=== PATIENT | male | born 1980 | race Caucasian/White ===

== ENCOUNTER 2019-06-03 01:37 | Emergency (ER) | payer SELFPAY ==
[2019-06-03] MEDS ORDERED: LIDOCAINE 1% MPF 5 ML VIAL ONE (02:20)
--- NOTE | 2019-06-03 03:04 | EDPHYS ---
Physician Documentation [facility] Name: Thee Key Age: 39 yrs Sex: Male : 1980 Arrival Date: 06/03/2019 Time: 01:42 Bed 4 Private MD: ED Physician Dick Sterling HPI: 06/03 02:12 This 39 yrs old Male presents to ER via EMS with complaints of fall injury. jr8 02:12 Details of fall: The patient fell from an upright position, while standing. Onset: The jr8 symptoms/episode began/occurred acutely, today. Associated injuries: The patient sustained injury to the head. Severity of symptoms: At their worst the symptoms were moderate, in the emergency department the symptoms are unchanged. It is unknown whether or not the patient has had similar symptoms in the past. The patient has not recently seen a physician. Patient stated that he had alcohol tonight. Stated that he fell but does not remember incident. Only remembers waking up on ground. Pain to head and face. Denies any other pain . Historical: - Allergies: :43 No Known Allergies; bb - Home Meds: 01:43 None [Active]; bb - PMHx: 01:43 None; bb - PSHx: 01:43 Tonsillectomy; bb - Immunization history:: Adult Immunizations up to date. - Social history:: Smoking status: Patient uses tobacco products, denies chronic smoking, but will smoke occasionally, Patient uses alcohol, on a daily basis. Patient/guardian denies using street drugs. - Ebola Screening: : No symptoms or risks identified at this time. ROS: 02:12 Eyes: Negative for injury, pain, redness, and discharge, Neck: Negative for injury, jr8 pain, and swelling, Cardiovascular: Negative for chest pain, palpitations, and edema, Respiratory: Negative for shortness of breath, cough, wheezing, and pleuritic chest pain, Abdomen/GI: Negative for abdominal pain, nausea, vomiting, diarrhea, and constipation, Back: Negative for injury and pain, MS/Extremity: Negative for injury and deformity, Neuro: Negative for headache, weakness, numbness, tingling, and seizure. 02:12 ENT: Positive for injury or acute deformity, laceration. 02:12 Skin: Positive for laceration(s), of the scalp. Exam: 02:12 Eyes: Pupils equal round and reactive to light, extra-ocular motions intact. Lids and jr8 lashes normal. Conjunctiva and sclera are non-icteric and not injected. Cornea within normal limits. Periorbital areas with no swelling, redness, or edema. Neck: Trachea midline, no thyromegaly or masses palpated, and no cervical lymphadenopathy. Supple, full range of motion without nuchal rigidity, or vertebral point tenderness. No Meningismus. Cardiovascular: Regular rate and rhythm with a normal S1 and S2. No gallops, murmurs, or rubs. Normal PMI, no JVD. No pulse deficits. Respiratory: Lungs have equal breath sounds bilaterally, clear to auscultation and percussion. No rales, rhonchi or wheezes noted. No increased work of breathing, no retractions or nasal flaring. Abdomen/GI: Soft, non-tender, with normal bowel sounds. No distension or tympany. No guarding or rebound. No evidence of tenderness throughout. Back: No spinal tenderness. No costovertebral tenderness. Full range of motion. Skin: Warm, dry with normal turgor. Normal color with no rashes, no lesions, and no evidence of cellulitis. MS/ Extremity: Pulses equal, no cyanosis. Neurovascular intact. Full, normal range of motion. Neuro: Awake and alert, GCS 15, oriented to person, place, time, and situation. Cranial nerves II-XII grossly intact. Motor strength 5/5 in all extremities. Sensory grossly intact. Cerebellar exam normal. Normal gait. 02:12 Head/face: Noted is a laceration(s), that is deep, that is jagged, 1 cm(s), of the center part back of head. 02:12 ENT: Exam is negative for earache, ear discharge, TM abnormalities, epistaxis, nasal discharge, sinus tenderness, pharyngitis, exudate, abnormal voice, Mouth: Lips: moist, lacerated, Patient has laceration approximately 3 cm to inner upper left lip and another external lip laceration going threw the vermilion border that is about 3 cm to upper left lip , Oral mucosa: pink and intact, moist, Gums: pink, Tongue: is moist, Posterior pharynx: Airway: patent, Tonsils: are normal in appearance, Uvula: midline, swelling, is not appreciated, Dental exam: normal. Vital Signs: 01:43 BP 116 / 73; Pulse 84; Resp 16 S; Temp 98.7(O); Pulse Ox 99% on R/A; Weight 72.57 kg bb (R); Height 5 ft. 7 in. (170.18 cm) (R); Pain 0/10; 02:55 BP 110 / 60; Pulse 80; Resp 18; Pulse Ox 100% ; ea 01:43 Body Mass Index 25.06 (72.57 kg, 170.18 cm) bb Laceration: 02:12 Wound Repair of 1cm ( 0.4in ) subcutaneous laceration to scalp. Distal jr8 neuro/vascular/tendon intact. Wound prep: Extensive cleansing with betadine, Wound irrigation with saline, Wound explored extensively. Skin closed with 1 jazmin Aromas using staple gun. Patient tolerated well. 02:12 Wound Repair of 3cm ( 1.2in ) mucosal laceration to left inner lip. Linear shaped.. jr8 Distal neuro/vascular/tendon intact. Anesthesia: Local anesthetic administered with 1 mls of 1% lidocaine. Wound prep: Wound irrigation with saline. Skin closed with 4 5-0 chromic using interrupted sutures and sterile technique. Patient tolerated well. 02:12 Wound Repair of 3cm ( 1.2in ) mucosal laceration to left external upper lip. Linear jr8 shaped.. Minimal bleeding noted.. Distal neuro/vascular/tendon intact. Anesthesia: Local anesthetic administered with 2 mls of 1% lidocaine. Wound prep: Extensive cleansing with betadine, Wound irrigation with saline, Wound explored extensively. Skin closed with 4 5-0 chromic using interrupted sutures and sterile technique. Patient tolerated well. MDM: 01:45 Patient medically screened. jr8 02:55 Data reviewed: vital signs, nurses notes, radiologic studies, CT scan. Data jr8 interpreted: Pulse oximetry: on room air is 99 %. Interpretation: normal. Counseling: I had a detailed discussion with the patient and/or guardian regarding: the historical points, exam findings, and any diagnostic results supporting the discharge/admit diagnosis, the need for outpatient follow up, a family practitioner, to return to the emergency department if symptoms worsen or persist or if there are any questions or concerns that arise at home. 06/03 02:21 Order name: Head C Spine Mpr Wo Con EDMS Administered Medications: No medications were administered Disposition: 06:41 Co-signature as Attending Physician, Dick Sterling MD I agree with the assessment and tw4 plan of care. Disposition: 06/03/19 03:03 Discharged to Home. Impression: Laceration without foreign body of scalp, Laceration of lip and oral cavity without foreign body. - Condition is Stable. - Discharge Instructions: Laceration Care, Adult, Stitches, Aromas, or Adhesive Wound Closure. - Prescriptions for Peridex 0.12 % Mucous Membrane mouthwash - place 15 milliliter by MUCOUS MEMBRANE route 2 times per day for 5 days (after meals), swish in mouth for 30 seconds then spit out; 1 bottle. - Medication Reconciliation Form, Thank You Letter, Antibiotic Education, Prescription Opioid Use form. - Follow up: Private Physician; When: 5 - 6 days; Reason: Wound Recheck, Recheck today's complaints, Continuance of care, Staple/Suture removal, Re-evaluation by your physician. - Problem is new. - Symptoms have improved. - Notes: Staple in head needs to be taken out in 7 days Stitches are dissolvable and will come out on there own Use Peridex twice daily for 5 days Signatures: Dispatcher [employer] EDHI Mary Ann Weiss RN RN Wai Trinh PA PA jr8 Dick Sterling MD MD tw4 Leny Lynne cc3 Corrections: (The following items were deleted from the chart) 02:31 02:21 Head C Spine MPR Wo Con+CT.RAD.BRZ ordered. EDHI EDMS 03:26 03:03 06/03/2019 03:03 Discharged to Home. Impression: Laceration without foreign body cc3 of scalp; Laceration of lip and oral cavity without foreign body. Condition is Stable. Discharge Instructions: Laceration Care, Adult, Stitches, Aromas, or Adhesive Wound Closure. Prescriptions for Peridex 0.12 % Mucous Membrane mouthwash - place 15 milliliter by MUCOUS MEMBRANE route 2 times per day for 5 days (after meals), swish in mouth for 30 seconds then spit out; 1 bottle. and Forms are Medication Reconciliation Form, Thank You Letter, Antibiotic Education, Prescription Opioid Use. Follow up: Private Physician; When: 5 - 6 days; Reason: Wound Recheck, Recheck today's complaints, Continuance of care, Staple/Suture removal, Re-evaluation by your physician. Problem is new. Symptoms have improved. jr8
--- NOTE | 2019-06-03 03:04 | ER ---
Nurse's Notes [facility] Name: Thee Key Age: 39 yrs Sex: Male : 1980 Arrival Date: 06/03/2019 Time: 01:42 Bed 4 Private MD: Diagnosis: Laceration without foreign body of scalp;Laceration of lip and oral cavity without foreign body Presentation: 06/03 01:42 Presenting complaint: EMS states: they were toned out to [address] for report of pt with bb fall injury, head trauma. Transition of care: patient was not received from another setting of care. Onset of symptoms was June 03, 2019. Risk Assessment: Do you want to hurt yourself or someone else? Patient reports no desire to harm self or others. Initial Sepsis Screen: Does the patient meet any 2 criteria? No. Patient's initial sepsis screen is negative. Does the patient have a suspected source of infection? No. Patient's initial sepsis screen is negative. Care prior to arrival: None. 01:42 Method Of Arrival: EMS: [facility] 01:42 Acuity: SALLY 2 bb Triage Assessment: 02:00 General: Appears in no apparent distress. Behavior is calm, cooperative, appropriate ea for age. Pain: Complains of pain in mouth and head. Neuro: Level of Consciousness is awake, alert, obeys commands, Oriented to person, place, time, situation. Cardiovascular: Patient's skin is warm and dry. Respiratory: Airway is patent Respiratory effort is even, unlabored, Respiratory pattern is regular, symmetrical. : No signs and/or symptoms were reported regarding the genitourinary system. Historical: - Allergies: 01:43 No Known Allergies; bb - Home Meds: 01:43 None [Active]; bb - PMHx: 01:43 None; bb - PSHx: 01:43 Tonsillectomy; bb - Immunization history:: Adult Immunizations up to date. - Social history:: Smoking status: Patient uses tobacco products, denies chronic smoking, but will smoke occasionally, Patient uses alcohol, on a daily basis. Patient/guardian denies using street drugs. - Ebola Screening: : No symptoms or risks identified at this time. Screenin:00 Abuse screen: Denies threats or abuse. Nutritional screening: No deficits noted. ea Tuberculosis screening: No symptoms or risk factors identified. Fall Risk None identified. Assessment: 02:00 Reassessment: Patient taken to CT scan department by the wildlife technician by waner. cc3 02:20 Reassessment: Patient appears in no apparent distress at this time. Patient and/or cc3 family updated on plan of care and expected duration. Pain level reassessed. Patient is alert, oriented x 3, equal unlabored respirations, skin warm/dry/pink. BREONNA Miller assisted SETH Gonsalez in suturing the patient's laceration to his lower lips and stapling the patient's lacerated scalp wound. Patient tolerated. 03:18 Reassessment: Patient appears in no apparent distress at this time. Patient and/or cc3 family updated on plan of care and expected duration. Pain level reassessed. Patient is alert, oriented x 3, equal unlabored respirations, skin warm/dry/pink. Wound cleaning and dressing done. Patient states feeling better. Patient states symptoms have improved. 03:20 Reassessment: Patient appears in no apparent distress at this time. Patient and/or cc3 family updated on plan of care and expected duration. Pain level reassessed. Patient is alert, oriented x 3, equal unlabored respirations, skin warm/dry/pink. SETH Gonsalez discharged the patient home, no IV cannula in situ. PAtient left ER vitally stable by wheelchair escorted by environmental tech Zbigniew and escorted the patient to call from the [employer] phone for his friend for a ride home. Patient states feeling better. Patient states symptoms have improved. Vital Signs: 01:43 BP 116 / 73; Pulse 84; Resp 16 S; Temp 98.7(O); Pulse Ox 99% on R/A; Weight 72.57 kg bb (R); Height 5 ft. 7 in. (170.18 cm) (R); Pain 0/10; 02:55 BP 110 / 60; Pulse 80; Resp 18; Pulse Ox 100% ; ea 01:43 Body Mass Index 25.06 (72.57 kg, 170.18 cm) bb ED Course: 01:42 Patient arrived in ED. ds1 01:43 Triage completed. bb 01:43 Arm band placed on Patient placed in an exam room, on a stretcher, on pulse oximetry. bb 01:45 Wai Gonsalez PA is PHCP. jr8 01:45 Dick Sterling MD is Attending Physician. jr8 01:51 Leny Lynne is Primary Nurse. cc3 02:00 Patient has correct armband on for positive identification. Bed in low position. Call ea light in reach. Side rails up X2. 02:21 Head C Spine Mpr Wo Con In Process Unspecified. EDMS 02:30 Assist provider with laceration repair on mouth and scalp that was between 2.6 to 7.5 ea cm using sutures. Set up tray. Performed by Wai ANN Patient tolerated well. 03:20 No provider procedures requiring assistance completed. Patient did not have IV access ea during this emergency room visit. Administered Medications: No medications were administered Outcome: 03:03 Discharge ordered by . jr8 03:20 Discharged to home ambulatory. ea 03:20 Condition: improved 03:20 Discharge instructions given to patient, Instructed on discharge instructions, follow up and referral plans. Demonstrated understanding of instructions, follow-up care. 03:26 Patient left the ED. cc3 Signatures: Dispatcher [employer] EDSC Kelsie Dos Santos ds1 Mary Ann Weiss, RN RN Wai Trinh PA PA jr8 Yoli Asif RN RN Leny Phillips cc3 Corrections: (The following items were deleted from the chart) 22:20 03:18 Reassessment: Patient appears in no apparent distress at this time. Patient cc3 and/or family updated on plan of care and expected duration. Pain level reassessed. Patient is alert, oriented x 3, equal unlabored respirations, skin warm/dry/pink. Wound cleaning and dressing done. cc3
--- NOTE | 2019-06-04 11:20 | RAD REPORT ---
EXAM DESCRIPTION: CT Head Without Intravenous Contrast CT Cervical Spine Without Intravenous Contrast CLINICAL HISTORY: The patient is 39 years old and is Male; TRAUMA TECHNIQUE: Axial computed tomography images of the head/brain and cervical spine without intravenous contrast. Sagittal and coronal reformatted images were created and reviewed. This CT exam was pe rformed using one or more of the following dose reduction techniques: automated exposure control, a djustment of the mA and/or kV according to patient size, and/or use of iterative reconstruction techn ique. COMPARISON: No relevant prior studies available. FINDINGS: ARTIFACTS: The exam is suboptimal secondary to motion artifact. BRAIN: Unremarkable. No hemorrhage. No significant white matter disease. No edema. VENTRICLES: Unremarkable. No ventriculomegaly. SKULL: No acute fracture. SINUSES: Unremarkable as visualized. No acute sinusitis. MASTOID AIR CELLS: Unremarkable as visualized. No mastoid effusion. VERTEBRAE: The vertebral body heights and alignment are maintained. No acute fracture. DISCS/SPINAL CANAL/NEURAL FORAMINA: The intervertebral disc spaces are maintained. No spinal can al stenosis. SOFT TISSUES: The soft tissues are normal. LUNG APICES: The lung apices are clear. IMPRESSION: 1. No acute intracranial findings. 2. No fracture or malalignment of the cervical spine. Electronically signed by: Tracey Villaseñor MD 06/03/2019 2:34 AM CDT Due to temporary technical issues with the PACS/Fluency reporting system, reports are being signed by the in house radiologist as a courtesy to ensure prompt reporting. The interpreting radiologist is f ully responsible for the content of the report.
== END 2019-06-03 03:26 | disposition home or self-care (01) ==
LOC: ER 01:37
PROC: 0JQ00ZZ Repair Scalp Subcutaneous Tissue and Fascia, Open Approach (ICD-10-PCS; principal; 2019-06-03)
PROC: 0CQ03ZZ Repair Upper Lip, Percutaneous Approach (ICD-10-PCS; 2019-06-03)
DX: S01.01XA Laceration without foreign body of scalp, initial encounter (principal); S01.511A Laceration without foreign body of lip, initial encounter; W18.30XA Fall on same level, unspecified, initial encounter; Z72.0 Tobacco use
CPT/HCPCS: 70450; 72125; 99284

== ENCOUNTER 2019-06-06 13:52 | Emergency (ER) | payer SELFPAY ==
--- NOTE | 2019-06-06 14:32 | ER ---
Nurse's Notes [facility] Name: Thee Key Age: 39 yrs Sex: Male : 1980 Arrival Date: 06/06/2019 Time: 14:09 Bed Waiting Private MD: None, None Diagnosis: ED Course: 06/06 14:09 Patient arrived in ED. dl4 14:10 None, None is Private Physician. dl4 14:20 Patient's name was called from ER lobby. No response. aj 14:24 Benita Loyola FNP-C [facility]. kb 14:24 Jerald Pardo MD is Attending Physician. kb 14:30 Patient's name was called from ER [employer]. No response. aj Administered Medications: No medications were administered Outcome: 14:32 Patient left the ED. Signatures: Benita Loyola FNP-C FNP-Ckb Myers, Amanda, RN RN aj Baxter, Heather, RN RN hb Luna, David dl4
== END 2019-06-06 14:32 | disposition left against medical advice (07) ==
LOC: ER 13:52
DX: Z53.21 Procedure and treatment not carried out due to patient leaving prior to being seen by health care provider (principal)

== ENCOUNTER 2021-11-18 13:09 | Emergency (ER) | payer OTHER, SELFPAY ==
--- OUTSIDE RECORDS SUMMARY | 2021-11-18 13:12 | XMS REPORT | Continuity of Care Document ---
:1980 Author Organization [facility] t Address [address] [place] [address] Care Team Providers Name Role Phone Tamanna CASTELLANOS Primary Care Physician CARMEN Attending Clinician Unavailable Blake ANN Attending Clinician RAYMOND MORALES Attending Clinician Unavailable DAYSI Attending Clinician Unavailable MD DAYSI Attending Clinician Unavailable Davion TRIMBLE Attending Clinician Unavailable DONIS Attending Clinician Unavailable CARLOS Admitting Clinician Unavailable MD Jerson GONZALEZ Admitting Clinician Unavailable Davion TRIMBLE Admitting Clinician Unavailable PEGGY VALERIO Admitting Clinician Unavailable Payers Payer Name Policy Type Policy Number Effective Date Expiration Date S our [employer] [id number] 2020 PLUS 00:00:00 Problems Condition Condition Condition Status Onset Resolution Last Treating Co mments Source Name Details Category Date Date Treatment Clinician Date 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 Social History Social Habit Start Date Stop Date Quantity Comments Source Exposure to SARS-CoV-2 Not sure [facility] (event) Sex Assigned At [birth year] [facility] 00:00:00 00:00:00 Smoking Status Start Date Stop Date Source Tobacco smoking consumption unknown [facility] Medications Ordered Filled Start Stop Current Ordering Indication Dosage Frequency Signature Comments Components Source Medication Medication Date Date Medication? Clinician (SIG) Name Name gabapentin 2020-11 Yes [id number] TAKE 1 UT (Neurontin) 12-05 9105 CAPSULE BY He alth 300 MG 00:00: MOUTH capsule 00 THREE TIMES A DAY gabapentin Yes [id number] TAKE 1 UT (Neurontin) 07-15 9105 CAPSULE BY He alth 300 MG 00:00: MOUTH capsule 00 THREE TIMES A DAY gabapentin Yes [id number] TAKE 1 UT (Neurontin) 07-15 9105 CAPSULE BY He alth 300 MG 00:00: MOUTH capsule 00 THREE TIMES A DAY gabapentin 2020- No [id number] TAKE 1 UT (Neurontin) 07-15 9105 CAPSULE BY ealth 300 MG 00:00: 00:00 MOUTH capsule 00 :00 THREE TIMES A DAY gabapentin 2020- No [id number] 300mg [id number] Take 1 UT (Neurontin) 03-30 9105 [id number] capsule Health 300 MG 00:00: 04:59 3D (300 mg capsule 00 :00 total) by mouth 3 (three) times a day. gabapentin 2020- No [id number] 300mg Q.[id number] Take 1 UT (Neurontin) 03-30 9105 [id number] capsule Health 300 MG 00:00: 04:59 3D (300 mg capsule 00 :00 total) by mouth 3 (three) times a day. gabapentin 2020- No [id number] 300mg Q.[id number] Take 1 UT (Neurontin) 03-30 9105 [id number] capsule Health 300 MG 00:00: 04:59 3D (300 mg capsule 00 :00 total) by mouth 3 (three) times a day. gabapentin 2020- [id number] 300mg Q.[id number] Take 1 UT (Neurontin) 03-30 9105 [id number] capsule Health 300 MG 00:00: 04:59 3D (300 mg capsule 00 :00 total) by mouth 3 (three) times a day. Procedures This patient has no known procedures. Encounters Start End Encounter Admission Attending Care Care Encounter Source Date/Time Date/Time Type Type Clinicians Facility Department ID 2021-04-03 [id number] [place] 01:02:42 [facility] 2021-04-01 Outpatient [facility] [id number] [place] 11:15:48 [facility] 2021-03-30 [facility] [id number] [place] 10:10:16 [facility] 2021-03-30 Outpatient [facility] [id number] [place] 09:22:20 [facility] 2021-03-24 Outpatient [facility] [id number] [place] 15:14:42 [facility] 2021-03-24 Outpatient [facility] [id number] [place] 14:31:43 [facility] 2021-03-21 Outpatient CARMEN [facility] [id number] [place] 02:48:14 [facility] 2021-10-02 2021-10-02 Refalondra Lozano, ANNIE 6414 [id number] [place] 00:00:00 00:00:[address] [id number] [facility] [id number] 2021-07-10 2021-07-10 Refill ANNIE Lozano [id number] [place] 00:00:00 00:00:00 Joannah TRAUMA [id number] [facility] [id number] 2021-03-30 2021-03-30 Office ANNIE Lozano [id number] [place] 09:22:05 14:54:13 Visit Joannah TRAUMA [id number] [facility] [id number] 1 2021-03-30 2021-03-30 Orders Lozano, UTP [id number] [place] 00:00:00 00:00:00 Only Britneyannah TRAUMA [id number] [facility] [id number] 1 2021-03-03 2021-03-03 Outpatient CARMEN, [facility] [id number] [facility] 06:15:00 23:59:00 NNEKA 2020-06-12 2020-06-16 Inpatient DAYSI, [facility] [id number] [place] 00:00:00 00:00:[address] 2020-01-08 2020-01-08 [facility] [id number] 13:41:00 13:41:00 NNEKA 2020-01-08 2020-01-08 [id number] 10:49:00 10:49:00 LISA 2019-10-15 2019-11-16 Inpatient VARACALLI, [facility] [id number] [facility] 23:20:00 14:15:00 LISA 2019-08-02 2019-10-15 Inpatient E DONIS, [facility] [id number] [facility] 22:29:00 22:45:00 FOREIGN Results Test Description Test Time Test Comments Results Result Comments Source SARS-CoV-2 (COVID-19) RNA [Presence] in Respiratory sp ecimen by 2020-06-13 03:21:56 BENJAMIN with probe detection Test Item Value Reference Range Interpretation Comme nts SARS-CoV-2 (COVID-19) RNA [Presence] in Respiratory Not detected No t-Detected specimen by BENJAMIN with probe detection (test code = 47104-8)
[2021-11-18] MEDS ORDERED: METHYLPREDNISOLONE 125 MG INJ ONE (13:42)
[2021-11-18] MEDS ORDERED: NA CHLORIDE 0.9% 1,000 ML ONE (13:43)
[2021-11-18] MEDS ORDERED: DIPHENHYDRAMINE 50 MG/ML VIAL ONE (13:43)
[2021-11-18] MEDS ORDERED: FAMOTIDINE 20 MG/2 ML VIAL IV ONE (13:43)
[2021-11-18 13:58] LABS: Absolute Lymphocytes (CBC) 1.2 K/uL (0.7-4.9); Hematocrit 45.3 % (39.6-49.0); Lymphocytes % 24.9 % (15.3-44.8); MPV 8.1 fL (7.6-11.3)
[2021-11-18 14:11] LABS: BUN Blood Urea Nitrogen 7 mg/dL (7-18); Bicarbonate 26 mmol/L (21-32); Glucose Level 103 mg/dL (74-106); Potassium 3.7 mmol/L (3.5-5.1); Sodium Level 134 mmol/L (136-145)
[2021-11-18 14:52] LABS: SARS-COV-2 RT PCR POSITIVE (NEGATIVE)
--- NOTE | 2021-11-18 15:02 | EDPHYS ---
Physician Documentation [facility] Name: Thee Key Age: 41 yrs Sex: Male : 1980 Arrival Date: 11/18/2021 Time: 13:10 Bed 12 Private MD: ED Physician Jerald Pardo HPI: 11/18 14:57 This 41 yrs old Male presents to ER via Wheelchair with complaints of Nausea. kb 14:57 The patient presents to the emergency department with nausea, vomiting. Onset: The kb symptoms/episode began/occurred 1 week(s) ago. Possible causes: unknown. The symptoms are aggravated by nothing. The symptoms are alleviated by nothing. Associated signs and symptoms: Pertinent positives: nausea, vomiting, Pertinent negatives: abdominal pain, fever. Severity of symptoms: At their worst the symptoms were mild moderate in the emergency department the symptoms are unchanged. The patient has not experienced similar symptoms in the past. The patient has not recently seen a physician. Pt reports nausea, headache, bodyaches for about a week. States he went to [facility] last night and was given zofran and discharged. States he got home and developed hives with swelling and itching to hands. States he took benadryl last night, but it didn't resolve the reaction. . Historical: - Allergies: 13:24 No Known Allergies; ld1 - Home Meds: 13:24 gabapentin 300 mg/6 mL (6 mL) oral soln 12 mL 3 times per day [Active]; Ambien 10 mg ld1 Oral tab 1 tab once daily [Active]; - PMHx: 13:24 insomnia; ld1 - PSHx: 13:24 Left arm surgery; Right leg amputation; ld1 - Immunization history:: Adult Immunizations up to date, Client reports having NOT received the Covid vaccine. - Social history:: Smoking status: Patient reports the use of cigarette tobacco products, denies chronic smoking, but will smoke occasionally, Patient/guardian denies using alcohol. ROS: 14:55 Respiratory: Negative for shortness of breath, cough, wheezing, and pleuritic chest kb pain. 14:55 Constitutional: Positive for body aches, Negative for chills, fatigue, fever, malaise, poor PO intake. 14:55 Abdomen/GI: Positive for nausea and vomiting, Negative for abdominal pain. 14:55 Skin: Positive for rash, swelling. 14:55 Neuro: Positive for headache. 14:55 All other systems are negative. Exam: 14:56 Constitutional: This is a well developed, well nourished patient who is awake, alert, kb and in no acute distress. Head/Face: Normocephalic, atraumatic. ENT: Moist Mucous membranes Cardiovascular: Regular rate and rhythm with a normal S1 and S2. No gallops, murmurs, or rubs. No pulse deficits. Respiratory: Respirations even and unlabored. No increased work of breathing. Talking in full sentences Abdomen/GI: Soft, non-tender. No distention MS/ Extremity: Pulses equal, no cyanosis. Neurovascular intact. Full, normal range of motion. Neuro: Awake and alert, GCS 15, oriented to person, place, time, and situation. Moves all extremities. Normal gait. Psych: Awake, alert, with orientation to person, place and time. Behavior, mood, and affect are within normal limits. 14:57 Skin: rash a mild rash is noted, rash can be described as urticarial. kb Vital Signs: 13:22 BP 103 / 78; Pulse 86; Resp 18; Temp 98.1(O); Pulse Ox 97% on R/A; Weight 86.18 kg; ld1 Height 5 ft. 7 in. (170.18 cm); Pain 0/10; 13:22 Body Mass Index 29.76 (86.18 kg, 170.18 cm) ld1 MDM: 13:27 Patient medically screened. kb 14:52 Data reviewed: vital signs, nurses notes. Data interpreted: Pulse oximetry: on room air kb is 97 %. Interpretation: normal. Counseling: I had a detailed discussion with the patient and/or guardian regarding: the historical points, exam findings, and any diagnostic results supporting the discharge/admit diagnosis, lab results, the need for outpatient follow up, a family practitioner, to return to the emergency department if symptoms worsen or persist or if there are any questions or concerns that arise at home. 11/18 13:35 Order name: CBC with Diff; Complete Time: 14:02 kb 11/18 13:35 Order name: Basic Metabolic Panel; Complete Time: 14:21 kb 11/18 13:35 Order name: COVID-19/FLU A+B (Document "Date of Onset" if Symptomatic); Complete Time: kb 14:52 11/18 13:35 Order name: IV Start; Complete Time: 14:04 kb Administered Medications: 14:03 Drug: Pepcid (famotidine) 20 mg Route: IVP; Site: left forearm; means 14:26 Follow up: Response: No adverse reaction means 14:03 Drug: SOLU-Medrol (methylPrednisoLONE) 125 mg Route: IVP; Site: left forearm; means 14:26 Follow up: Response: No adverse reaction means 14:03 Drug: NS 0.9% 1000 ml Route: IV; Rate: 1000 ml; Site: left forearm; means 14:03 Drug: Benadryl (diphenhydrAMINE) 12.5 mg Route: IVP; Site: left forearm; means 14:26 Follow up: Response: No adverse reaction means 15:19 Drug: Tylenol 1000 mg Route: PO; means 15:19 Follow up: Response: No adverse reaction means Disposition: 15:38 Co-signature as Attending Physician, Jerald Pardo MD I agree with the assessment and rn plan of care. Attestation: The patient's history, exam findings, diagnostics, and a summary of any interventions or procedures was reviewed in detail with Benita BENITEZ. Disposition Summary: 11/18/21 15:01 Discharge Ordered Location: Home kb Condition: Stable kb Diagnosis - Urticaria, unspecified kb - Coronavirus infection, unspecified kb Followup: kb - With: Emergency Department - When: As needed - Reason: Worsening of condition Followup: kb - With: Private Physician - When: 2 - 3 days - Reason: Recheck today's complaints, Continuance of care, Re-evaluation by your physician Discharge Instructions: - Discharge Summary Sheet kb - Viral Respiratory Infection, [id number] kb - Hives, [id number]-Kaku kb - COVID-19 kb Forms: - Medication Reconciliation Form kb - Thank You Letter kb - Antibiotic Education kb - Prescription Opioid Use kb Prescriptions: - Pepcid 20 mg Oral Tablet - take 1 tablet by ORAL route every 12 hours for 5 days; 10 tablet; Refills: 0, kb Product Selection Permitted - Prednisone 20 mg Oral Tablet - take 1 tablet by ORAL route once daily for 5 days; 5 tablet; Refills: 0, kb Product Selection Permitted Signatures: Dispatcher [employer] Benita Toscano FNP-C IRRIGATOR-Ckb Jerald Pardo MD MD rn Dibbern, Lauren RN RN ld1 Gillian eLe RN RN means Corrections: (The following items were deleted from the chart) 14:57 14:56 Constitutional: This is a well developed, well nourished patient who is awake, kb alert, and in no acute distress. Head/Face: Normocephalic, atraumatic. ENT: Moist Mucous membranes Cardiovascular: Regular rate and rhythm with a normal S1 and S2. No gallops, murmurs, or rubs. No pulse deficits. Respiratory: Respirations even and unlabored. No increased work of breathing. Talking in full sentences Abdomen/GI: Soft, non-tender. No distention Skin: Warm, dry with normal turgor. Normal color. MS/ Extremity: Pulses equal, no cyanosis. Neurovascular intact. Full, normal range of motion. Neuro: Awake and alert, GCS 15, oriented to person, place, time, and situation. Moves all extremities. Normal gait. Psych: Awake, alert, with orientation to person, place and time. Behavior, mood, and affect are within normal limits. kb
--- NOTE | 2021-11-18 15:02 | ER ---
Nurse's Notes [facility] Name: Thee Key Age: 41 yrs Sex: Male : 1980 Arrival Date: 11/18/2021 Time: 13:10 Bed 12 Private MD: Diagnosis: Urticaria, unspecified;Coronavirus infection, unspecified Presentation: 11/18 13:22 Chief complaint: Patient states: I have been having severe nausea. I went to [facility] and ld1 received Zofran PO. I was discharged home and developed hives, itching and a really bad headache. Pt reporting swollen hands. Coronavirus screen: Client presents with at least one sign or symptom that may indicate coronavirus-19. Standard/surgical mask placed on the client. Ebola Screen: No symptoms or risks identified at this time. Initial Sepsis Screen: Does the patient meet any 2 criteria? No. Patient's initial sepsis screen is negative. Does the patient have a suspected source of infection? No. Patient's initial sepsis screen is negative. Risk Assessment: Do you want to hurt yourself or someone else? Patient reports no desire to harm self or others. Onset of symptoms was November 18, 2021. 13:22 Method Of Arrival: Wheelchair ld1 13:22 Acuity: SALLY 4 ld1 Triage Assessment: 13:24 General: Appears in no apparent distress. comfortable, Behavior is calm, cooperative, ld1 appropriate for age. Pain: Denies pain. Neuro: Level of Consciousness is awake, alert, obeys commands. GI: Abdomen is round non-distended, Reports nausea. Historical: - Allergies: 13:24 No Known Allergies; ld1 - Home Meds: 13:24 gabapentin 300 mg/6 mL (6 mL) oral soln 12 mL 3 times per day [Active]; Ambien 10 mg ld1 Oral tab 1 tab once daily [Active]; - PMHx: 13:24 insomnia; ld1 - PSHx: 13:24 Left arm surgery; Right leg amputation; ld1 - Immunization history:: Adult Immunizations up to date, Client reports having NOT received the Covid vaccine. - Social history:: Smoking status: Patient reports the use of cigarette tobacco products, denies chronic smoking, but will smoke occasionally, Patient/guardian denies using alcohol. Screenin:38 Abuse screen: Denies threats or abuse. Denies injuries from another. Nutritional means screening: No deficits noted. Tuberculosis screening: No symptoms or risk factors identified. Fall Risk Secondary diagnosis (15 points) impaired mobility. Assessment: 13:34 General: Appears in no apparent distress. Behavior is calm, cooperative. Pain: Denies means pain. GI: Reports nausea. Derm: Reports itching, generalized rash. Vital Signs: 13:22 BP 103 / 78; Pulse 86; Resp 18; Temp 98.1(O); Pulse Ox 97% on R/A; Weight 86.18 kg; ld1 Height 5 ft. 7 in. (170.18 cm); Pain 0/10; 13:22 Body Mass Index 29.76 (86.18 kg, 170.18 cm) ld1 ED Course: 13:10 Patient arrived in ED. ds1 13:24 Triage completed. ld1 13:24 Arm band placed on right wrist. ld1 13:27 Benita Loyola FNP-C is PHCP. kb 13:27 Jerald Pardo MD is Attending Physician. kb 13:39 Patient has correct armband on for positive identification. Bed in low position. means 13:39 No provider procedures requiring assistance completed. means 14:04 Basic Metabolic Panel Sent. means 14:04 COVID-19/FLU A+B (Document "Date of Onset" if Symptomatic) Sent. means 14:04 Inserted saline lock: 20 gauge forearm, using aseptic technique. means 15:20 IV discontinued, intact, Pressure dressing applied. means Administered Medications: 14:03 Drug: Pepcid (famotidine) 20 mg Route: IVP; Site: left forearm; means 14:26 Follow up: Response: No adverse reaction means 14:03 Drug: SOLU-Medrol (methylPrednisoLONE) 125 mg Route: IVP; Site: left forearm; means 14:26 Follow up: Response: No adverse reaction means 14:03 Drug: NS 0.9% 1000 ml Route: IV; Rate: 1000 ml; Site: left forearm; means 14:03 Drug: Benadryl (diphenhydrAMINE) 12.5 mg Route: IVP; Site: left forearm; means 14:26 Follow up: Response: No adverse reaction means 15:19 Drug: Tylenol 1000 mg Route: PO; means 15:19 Follow up: Response: No adverse reaction means Outcome: 15:01 Discharge ordered by MD. brown 15:19 Discharged to home means 15:19 Condition: good 15:19 Discharge instructions given to Prescriptions given X 2. 15:20 Patient left the ED. means Signatures: Benita Loyola FNP-C HONEY EXTRACTOR-Kelsie Key ds1 Marni Gallego, BREONNA RN ld1 Gillian Lee RN RN means
[2021-11-18] MEDS ORDERED: ACETAMINOPHEN 500 MG TAB ONE (15:17)
[2021-11-18 15:28] VITALS: BP 103/78; TEMP 98.1; O2SAT 97
== END 2021-11-18 15:20 | disposition home or self-care (01) ==
LOC: ER 13:09
DX: U07.1 COVID-19 (principal); L50.9 Urticaria, unspecified; F17.210 Nicotine dependence, cigarettes, uncomplicated
CPT/HCPCS: 85025; 80048; 36415; 0240U; 96375; 96374; 99284; J1200; J7030; J2930

== ENCOUNTER 2021-11-20 14:59 | Emergency (ER) | payer OTHER ==
--- OUTSIDE RECORDS SUMMARY | 2021-11-20 15:02 | XMS REPORT | Continuity of Care Document ---
:1980 Author Organization [facility] t Address [address] [place] [address] Care Team Providers Name Role Phone Tamanna [...] Date Expiration Date S our [employer] [id number] 2020 PLUS 00:00:00 Problems Condition Condition Condition [...] on on 00 Traumatic Traumatic Disease Active [facility] brain 206 Health injury injury 00:00: 00 Allergies, Adverse Reactions, Alerts This patient has no known allergies or adverse reactions. Social History Social Habit Start Date Stop Date Quantity Comments Source Exposure to SARS-CoV-2 Not sure [facility] (event) Sex Assigned At [birth year] [facility] 00:00:00 00:00:00 Smoking Status Start Date Stop Date Source Tobacco smoking consumption unknown [facility] Medications Ordered Filled Start Stop Current Ordering Indication Dosage Frequency Signature Comments Components Source Medication Medication Date Date Medication? Clinician (SIG) Name Name gabapentin 2020-11 Yes [id number] TAKE 1 UT (Neurontin) 12-05 9105 CAPSULE BY He alth 300 MG 00:00: MOUTH capsule 00 THREE TIMES A DAY gabapentin Yes [id number] TAKE 1 UT (Neurontin) 07-15 9105 CAPSULE BY [facility] 300 MG 00:00: MOUTH capsule 00 THREE TIMES A DAY gabapentin Yes [id number] TAKE 1 UT (Neurontin) 07-15 9105 CAPSULE BY [facility] 300 MG 00:00: MOUTH capsule 00 THREE TIMES A DAY gabapentin 2020- No [id number] TAKE 1 UT (Neurontin) 07-15 9105 CAPSULE BY [facility]alth 300 MG 00:00: 00:00 MOUTH capsule 00 :00 THREE TIMES A DAY gabapentin 2020- No [id number] 300mg [id number] Take 1 UT (Neurontin) 03-30 9105 [id number] capsule Health 300 MG 00:00: 04:59 3D (300 mg capsule 00 :00 total) by mouth 3 (three) times a day. gabapentin 2020- No [id number] 300mg [id number] Take 1 UT (Neurontin) 03-30 9105 [id number] capsule Health 300 MG 00:00: 04:59 3D (300 mg capsule 00 :00 total) by mouth 3 (three) times a day. gabapentin 2020- No [id number] 300mg [id number] Take 1 UT (Neurontin) 03-30 9105 [id number] capsule Health 300 MG 00:00: 04:59 3D (300 mg capsule 00 :00 total) by mouth 3 (three) times a day. gabapentin 2020- [id number] 300mg [id number] Take 1 UT (Neurontin) 03-30 9105 [id number] capsule Health 300 MG 00:00: 04:59 3D (300 mg capsule 00 :00 total) by mouth 3 (three) times a day. Procedures This patient has no known procedures. Encounters Start End Encounter Admission Attending Care Care Encounter Source Date/Time Date/Time Type Type Clinicians Facility Department ID 2021-04-03 [id number] [place] 01:02:42 [facility] 2021-04-01 Outpatient [facility] [id number] [place] 11:15:48 [facility] 2021-03-30 [facility] [id number] [place] 10:10:16 [facility] 2021-03-30 Outpatient [facility] [id number] [place] 09:22:20 [facility] 2021-03-24 Outpatient [facility] [id number] [place] 15:14:42 [facility] 2021-03-24 Outpatient [facility] [id number] [place] 14:31:43 [facility] 2021-03-21 Outpatient CARMEN [facility] [id number] [place] 02:48:14 [facility] 2021-10-02 2021-10-02 Refalondra Lozano, ANNIE 6414 [id number] [place] 00:00:00 00:00:[address] [id number] [facility] [id number] 2021-07-10 2021-07-10 Refill ANNIE Lozano [id number] [place] 00:00:00 00:00:00 Joannah TRAUMA [id number] [facility] [id number] 2021-03-30 2021-03-30 Office ANNIE Lozano [id number] [place] 09:22:05 14:54:13 Visit Joannah TRAUMA [id number] [facility] [id number] 1 2021-03-30 2021-03-30 Orders Lozano, UTP [id number] [place] 00:00:00 00:00:00 Only Britneyannah TRAUMA [id number] [facility] [id number] 2021-03-03 2021-03-03 Outpatient CARMEN, [facility] [id number] [facility] 06:15:00 23:59:00 NNEKA 2020-06-12 2020-06-16 Inpatient DAYSI, [facility] [id number] [place] 00:00:00 00:00:[address] 2020-01-08 2020-01-08 [facility] [place] 13:41:00 13:41:00 NNEKA 2020-01-08 2020-01-08 Out[facility] VARACALLI[facility] 10:49[facility]00 10:49:00 LISA 2019-10-15 2019-11-16 Inpatient VARACALLI, [facility] [address] [facility] 23:20:00 14:15:00 LISA 2019-08-02 2019-10-15 Inpatient E DONIS, [facility] [id number] [facility] 22:29:00 22:45:00 FOREIGN Results Test Description Test Time Test Comments Results Result Comments Source SARS-CoV-2 (COVID-19) RNA [Presence] in Respiratory sp ecimen by 2020-06-13 03:21:56 BENJAMIN with probe detection Test Item Value Reference Range Interpretation Comme nts SARS-CoV-2 (COVID-19) RNA [Presence] in Respiratory Not detected No t-Detected specimen by BENJAMIN with probe detection (test code = 82817-7)
[2021-11-20] MEDS ORDERED: METHYLPREDNISOLONE 125 MG INJ ONE (15:28)
[2021-11-20] MEDS ORDERED: DIPHENHYDRAMINE 50 MG/ML VIAL ONE (15:28)
--- NOTE | 2021-11-20 15:50 | EDPHYS ---
Physician Documentation [facility] Name: Thee Key Age: 41 yrs Sex: Male : 1980 Arrival Date: 11/20/2021 Time: 15:03 Bed 18 Private MD: ED Physician Graham Aparicio HPI: 11/20 15:44 This 41 yrs old Male presents to ER via Wheelchair with complaints of Allergic sp3 Reaction, Itching. 15:44 1-year-old male with no significant past medical history presents with "itchiness all sp3 over" from a presumed allergic reaction. Patient was seen several days ago for the same thing and discharged on prednisone which he did symptoms but the symptoms have not returned. Patient cannot identify what is causing his symptoms. Currently there are no rashes, hives, swelling or any other anaphylactic or histamine based allergic symptoms. He does report subjective itching only. On review of systems, he denies fever, headache, URI symptoms, chest pain, shortness of breath, back pain, abdominal pain, nausea, vomiting, diarrhea, URI symptoms, syncope, rash, or any other symptoms at this time. Remainder of ROS negative.. 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 Flu vaccine status is unknown. - Social history:: Smoking status: Patient denies any tobacco usage or history of. ROS: 15:47 Constitutional: Negative for fever, chills, and weight loss, Eyes: Negative for injury, sp3 pain, redness, and discharge, ENT: Negative for injury, pain, and discharge, Neck: Negative for injury, pain, and swelling, Cardiovascular: Negative for chest pain, palpitations, and edema, Respiratory: Negative for shortness of breath, cough, wheezing, and pleuritic chest pain, Abdomen/GI: Negative for abdominal pain, nausea, vomiting, diarrhea, and constipation, Back: Negative for injury and pain, MS/Extremity: Negative for injury and deformity, Skin: Negative for injury, rash, and discoloration, Psych: Negative for depression, anxiety, suicide ideation, homicidal ideation, and hallucinations, Endocrine: Negative for neck swelling, polydipsia, polyuria, polyphagia, and marked weight changes, Hematologic/Lymphatic: Negative for swollen nodes, abnormal bleeding, and unusual bruising. 15:47 All other systems are negative. Exam: 15:48 Constitutional: This is a well developed, well nourished patient who is awake, alert, sp3 and in no acute distress. Head/Face: Normocephalic, atraumatic. Eyes: Pupils equal round and reactive to light, extra-ocular motions intact. Lids and lashes normal. Conjunctiva and sclera are non-icteric and not injected. Cornea within normal limits. Periorbital areas with no swelling, redness, or edema. ENT: Nares patent. No nasal discharge, no septal abnormalities noted. External auditory canals are clear. Oropharynx with no redness, swelling, or masses, exudates, or evidence of obstruction, uvula midline. Mucous membranes moist. Neck: Trachea midline, no thyromegaly or masses palpated, and no cervical lymphadenopathy. Supple, full range of motion without nuchal rigidity, or vertebral point tenderness. No Meningismus. Chest/axilla: Normal chest wall appearance and motion. Nontender with no deformity. No lesions are appreciated. Cardiovascular: Regular rate and rhythm with a normal S1 and S2. No gallops, murmurs, or rubs. Normal PMI, no JVD. No pulse deficits. Respiratory: Lungs have equal breath sounds bilaterally, clear to auscultation and percussion. No rales, rhonchi or wheezes noted. No increased work of breathing, no retractions or nasal flaring. Abdomen/GI: Soft, non-tender, with normal bowel sounds. No distension or tympany. No guarding or rebound. No evidence of tenderness throughout. Back: No spinal tenderness. No costovertebral tenderness. Full range of motion. Skin: Warm, dry with normal turgor. Normal color with no rashes, no lesions, and no evidence of cellulitis. MS/ Extremity: Pulses equal, no cyanosis. Neurovascular intact. Full, normal range of motion. Neuro: Awake and alert, GCS 15, oriented to person, place, time, and situation. Cranial nerves II-XII grossly intact. Motor strength 5/5 in all extremities. Sensory grossly intact. Cerebellar exam normal. Normal gait. Psych: Awake, alert, with orientation to person, place and time. Behavior, mood, and affect are within normal limits. Vital Signs: 15:12 BP 114 / 72; Pulse 85; Resp 17; Temp 97.9(TE); Pulse Ox 97% on R/A; tw2 15:15 BP 134 / 72; Pulse 85; Resp 16; Pulse Ox 96% ; bp 16:28 BP 118 / 72; Pulse 82; Resp 17; Pulse Ox 97% ; bp MDM: 15:30 Patient medically screened. sp3 15:48 Data reviewed: vital signs, nurses notes. ED course: 41-year-old male with mild sp3 allergic reaction. Will administer Benadryl and Solu-Medrol IV and discharge patient on prednisone and Atarax with clear instructions to follow-up with allergy/immunology.. Administered Medications: 15:30 Drug: SOLU-Medrol (methylPrednisoLONE) 125 mg Route: IVP; Site: right antecubital; bp 15:40 Follow up: Response: No adverse reaction bp 15:30 Drug: diphenhydrAMINE 25 mg Route: IVP; Site: right antecubital; bp 15:40 Follow up: Response: No adverse reaction bp Disposition Summary: 11/20/21 15:50 Discharge Ordered Location: Home sp3 Condition: Stable sp3 Diagnosis - Allergic reaction sp3 Followup: sp3 - With: Private Physician - When: As needed - Reason: Recheck today's complaints Followup: sp3 - With: Aditi Ritter MD - When: Upon discharge from the Emergency Department - Reason: Further diagnostic work-up Discharge Instructions: - Discharge Summary Sheet sp3 Forms: - Medication Reconciliation Form sp3 - Thank You Letter sp3 - Antibiotic Education sp3 - Prescription Opioid Use sp3 Prescriptions: - Hydroxyzine HCl 25 mg Oral Tablet - take 1 tablet by ORAL route every 6 hours As needed; 30 tablet; Refills: 0, sp3 Product Selection Permitted - Prednisone 20 mg Oral Tablet - take 2 tablets by ORAL route once daily for 5 days; 10 tablet; Refills: 0, sp3 Product Selection Permitted Signatures: Poly Chowdary RN RN tw2 Georgi Monique, RN RN bp Graham Aparicio, MD CASTELLANOS sp3
--- NOTE | 2021-11-20 15:50 | ER ---
Nurse's Notes [facility] Name: Thee Key Age: 41 yrs Sex: Male : 1980 Arrival Date: 11/20/2021 Time: 15:03 Bed 18 Private MD: Diagnosis: Allergic reaction Presentation: 11/20 15:12 Chief complaint: Patient states: i started having a reaction 3 days ago. i think it tw2 started on the back of my legs. and now its all over. whenever i was here they gave my the under the tongue zofran. they gave me prednisone and i took all 5 now and i am not better. i am at my wits end and it just wont go away. my hands are swelling and i was itching. Coronavirus screen: At this time, the client does not indicate any symptoms associated with coronavirus-19. Ebola Screen: Patient denies travel to an Ebola-affected area in the 21 days before illness onset. Onset: The symptoms/episode began/occurred 3 day(s) ago. Anaphylaxis evaluation, "maybe a little bit of swelling in my lips but i feel fine. not short of breath". Initial Sepsis Screen: Does the patient meet any 2 criteria? No. Patient's initial sepsis screen is negative. Does the patient have a suspected source of infection? No. Patient's initial sepsis screen is negative. Risk Assessment: Do you want to hurt yourself or someone else? Patient reports no desire to harm self or others. Onset of symptoms was November 20, 2021. 15:12 Method Of Arrival: Wheelchair tw2 15:12 Acuity: SALLY 3 tw2 Triage Assessment: 15:15 General: Appears in no apparent distress. uncomfortable, Behavior is calm, cooperative, tw2 appropriate for age. General: "i am just itching like a mother". Pain: Denies pain. 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 Flu vaccine status is unknown. - Social history:: Smoking status: Patient denies any tobacco usage or history of. Screenin:15 Abuse screen: Denies threats or abuse. Denies injuries from another. Nutritional bp screening: No deficits noted. Tuberculosis screening: No symptoms or risk factors identified. Fall Risk None identified. Assessment: 15:15 General: SEE TRIAGE NOTE. bp 16:28 Reassessment: PT D/C HOME VIA W/C, DX WITH ALLERGIC RXN. Respiratory: Airway is patent bp Respiratory effort is even, unlabored, Breath sounds are clear bilaterally. Vital Signs: 15:12 BP 114 / 72; Pulse 85; Resp 17; Temp 97.9(TE); Pulse Ox 97% on R/A; tw2 15:15 BP 134 / 72; Pulse 85; Resp 16; Pulse Ox 96% ; bp 16:28 BP 118 / 72; Pulse 82; Resp 17; Pulse Ox 97% ; bp ED Course: 15:03 Patient arrived in ED. am2 15:15 Triage completed. tw2 15:15 Arm band placed on. tw2 15:15 Patient has correct armband on for positive identification. Bed in low position. Call bp light in reach. Side rails up X2. 15:18 Graham Aparicio MD is Attending Physician. sp3 15:30 Inserted saline lock: 20 gauge in right antecubital area, using aseptic technique. bp Blood collected. 15:36 Georgi Monique, BREONNA is Primary Nurse. bp 15:49 Aditi Ritter MD is Referral Physician. sp3 16:28 No provider procedures requiring assistance completed. IV discontinued, intact, bp bleeding controlled, No redness/swelling at site. Pressure dressing applied. Administered Medications: 15:30 Drug: SOLU-Medrol (methylPrednisoLONE) 125 mg Route: IVP; Site: right antecubital; bp 15:40 Follow up: Response: No adverse reaction bp 15:30 Drug: diphenhydrAMINE 25 mg Route: IVP; Site: right antecubital; bp 15:40 Follow up: Response: No adverse reaction bp Outcome: 15:50 Discharge ordered by . sp3 16:28 Discharged to home via wheelchair, with family. bp 16:28 Condition: stable 16:28 Discharge instructions given to patient, Instructed on discharge instructions, follow up and referral plans. medication usage, Demonstrated understanding of instructions, follow-up care, medications, Prescriptions given X 2. 16:30 Patient left the ED. bp Signatures: Poly Chowdary RN RN tw2 Ailyn Hale am2 Georgi Monique RN RN bp Graham Aparicio MD MD sp3
[2021-11-20 16:42] VITALS: TEMP 97.9
[2021-11-20 16:45] VITALS: BP 118/72; O2SAT 97
== END 2021-11-20 16:30 | disposition home or self-care (01) ==
LOC: ER 14:59
DX: L29.9 Pruritus, unspecified (principal); T78.40XA Allergy, unspecified, initial encounter; X58.XXXA Exposure to other specified factors, initial encounter
CPT/HCPCS: 96375; 96374; 99284; J1200; J2930

== ENCOUNTER 2024-09-16 12:21 | Emergency (ER) | payer MEDICARE, OTHER ==
[2024-09-16] MEDS ORDERED: ONDANSETRON 4 MG/2 ML VIAL ONE (13:25)
[2024-09-16] MEDS ORDERED: ACETAMINOPHEN 325 MG TABLET ONE (13:25)
[2024-09-16 13:42] LABS: SARS-CoV-2 Antigen CONTROL BLUE LINE VIS/BG OK; SARS-CoV-2 Antigen Rapid Res Negative (Negative)
--- NOTE | 2024-09-16 13:51 | RAD REPORT ---
EXAMINATION: ONE VIEW CHEST XR CLINICAL INDICATION: Male, 44 years old.FEVER TECHNIQUE: 1 View, AP supine, X-ray of the chest was performed. [id number]. COMPARISON: 08/06/2024 FINDINGS: Lungs and pleura: Clear lungs. No effusion. Heart and mediastinum: Normal heart size. Unremarkable mediastinal contours. Osseous structures: No acute abnormality. Tubes/lines: None Other: None. IMPRESSION: No acute intrathoracic abnormality.
[2024-09-16 14:03] LABS: Absolute Basophils 0.1 K/uL (0-0.5); Absolute Eosinophils 0.2 K/uL (0-0.5); Absolute Lymphocytes (CBC) 1.6 K/uL (0.7-4.9); Absolute Monocytes 0.6 K/uL (0.1-1.3); Absolute Neutrophil 5.7 K/uL (1.8-8.0); Basophils % 0.7 % (0-1.3); Eosinophils % 2.4 % (0-4.4); Hematocrit 48.3 % (39.6-49.0); Hemoglobin 16.1 g/dL (13.6-17.9); Lymphocytes % 19.5 % (15.3-44.8); MCH 29.4 pg (27.0-35.0); MCHC 33.3 g/dL (32.0-36.0); MCV 88.2 fL (80-100); MPV 8.7 fL (7.6-11.3); Monocytes % 7.7 % (3.3-12.3); Neutrophils % 69.7 % (41.7-73.7); Nucleated Red Blood Cells % 0.1 % (0-0); Platelets 227 thou/uL (152-406); RBC Red Blood Cell Count 5.48 M/uL (4.33-5.43); Red Cell Distribution Width 13.6 % (12.1-15.2)
[2024-09-16 14:23] LABS: ALT/SGPT 46 U/L (16-61); AST/SGOT 23 U/L (15-37); Albumin 3.9 g/dL (3.4-5.0); Albumin/Globulin Ratio 1.1 (1.1-1.8); Alkaline Phosphatase 47 U/L (45-117); Anion Gap 8.8 mEq/L (5.0-15.0); BUN Blood Urea Nitrogen 12 mg/dL (7-18); Bicarbonate 25 mEq/L (21-32); Bilirubin Total 0.5 mg/dL (0.2-1.0); Globulin 3.7 g/dL (2.3-3.5); Glomerular Filtration Rate 108 ml/min (=/>90); Glucose Level 91 mg/dL (74-106); Magnesium 2.1 mg/dL (1.6-2.4); NT PRO-BNP 24 pg/mL (<125); Potassium 3.8 mEq/L (3.5-5.1); Protein, Total 7.6 g/dL (6.4-8.2); Sodium Level 136 mEq/L (136-145); Troponin High Sensitivity 3.2 pg/mL (<58.9)
[2024-09-16 14:25] LABS: Bilirubin Direct < 0.2 mg/dL (0-0.2); Bilirubin Indirect, Calculated 0.3 mg/dL (0.2-0.8)
--- NOTE | 2024-09-16 15:07 | EDPHYS ---
Physician Documentation [facility] Name: Thee Key Age: 44 yrs Sex: Male : 1980 Arrival Date: 09/16/2024 Time: 12:21 Bed 17 Private MD: ED Physician Graham Aparicio HPI: 09/16 13:12 This 44 yrs old Male presents to ER via Ambulatory with complaints of Fever, Nausea, sp3 General Weakness. 13:12 44-year-old male history of TBI, insomnia now presents with chief complaint generalized sp3 weakness, chills after sleeping in a bed and "getting bit by something" and having "whelps" which have resolved with but weakness symptoms have continued. He denies any pain, ongoing fever, cough, congestion, chest pain, shortness of breath, vomiting, diarrhea, syncope, near syncope, ongoing rash, or any other signs or symptoms on ROS at this time. He does endorse mild nausea.. Historical: - PMHx: 12:40 insomnia; traumatic brain injury; hb - PSHx: 12:40 left arm surgery; RIGHT BKA; Right leg amputation; hb - Immunization history:: Adult Immunizations up to date. - Infectious Disease History:: Denies. - Social history:: Smoking status: Patient reports the use of cigarette tobacco products, denies chronic smoking, but will smoke occasionally. ROS: 13:13 Constitutional: Negative for fever, chills, and weight loss, Eyes: Negative for injury, sp3 pain, redness, and discharge, ENT: Negative for injury, pain, and discharge, Neck: Negative for injury, pain, and swelling, Cardiovascular: Negative for chest pain, palpitations, and edema, Respiratory: Negative for shortness of breath, cough, wheezing, and pleuritic chest pain, Back: Negative for injury and pain, MS/Extremity: Negative for injury and deformity, Neuro: Negative for headache, weakness, numbness, tingling, and seizure, Psych: Negative for depression, anxiety, suicide ideation, homicidal ideation, and hallucinations, Allergy/Immunology: Negative for hives, rash, and allergies, Endocrine: Negative for neck swelling, polydipsia, polyuria, polyphagia, and marked weight changes, 13:13 All other systems are negative, Exam: 13:14 Constitutional: This is a well developed, well nourished patient who is awake, alert, sp3 and in no acute distress. Head/Face: Normocephalic, atraumatic. Eyes: Pupils equal round and reactive to light, extra-ocular motions intact. Lids and lashes normal. Conjunctiva and sclera are non-icteric and not injected. Cornea within normal limits. Periorbital areas with no swelling, redness, or edema. ENT: Nares patent. No nasal discharge, no septal abnormalities noted. External auditory canals are clear. Oropharynx with no redness, swelling, or masses, exudates, or evidence of obstruction, uvula midline. Mucous membranes moist. Neck: Trachea midline, no thyromegaly or masses palpated, and no cervical lymphadenopathy. Supple, full range of motion without nuchal rigidity, or vertebral point tenderness. No Meningismus. Chest/axilla: Normal chest wall appearance and motion. Nontender with no deformity. No lesions are appreciated. Cardiovascular: Regular rate and rhythm with a normal S1 and S2. No gallops, murmurs, or rubs. Normal PMI, no JVD. No pulse deficits. Respiratory: Lungs have equal breath sounds bilaterally, clear to auscultation and percussion. No rales, rhonchi or wheezes noted. No increased work of breathing, no retractions or nasal flaring. Abdomen/GI: Soft, non-tender, with normal bowel sounds. No distension or tympany. No guarding or rebound. No evidence of tenderness throughout. Back: No spinal tenderness. No costovertebral tenderness. Full range of motion. Skin: Warm, dry with normal turgor. Normal color with no rashes, no lesions, and no evidence of cellulitis. MS/ Extremity: Pulses equal, no cyanosis. Neurovascular intact. Full, normal range of motion. Neuro: Awake and alert, GCS 15, oriented to person, place, time, and situation. Cranial nerves II-XII grossly intact. Motor strength 5/5 in all extremities. Sensory grossly intact. Cerebellar exam normal. Normal gait. Psych: Awake, alert, with orientation to person, place and time. Behavior, mood, and affect are within normal limits. 13:14 Musculoskeletal/extremity: Amputated right side lower extremity. 13:49 ECG was reviewed by the Attending Physician. EKG demonstrates normal sinus rhythm at 62 sp3 bpm with normal intervals, normal QRS, normal axis, isolated inverted T wave in lead III and nonspecific diffuse ST/T changes without evidence of acute ischemia. Vital Signs: 12:38 BP 151 / 96; Pulse 69; Resp 16; Temp 98.1(TE); Pulse Ox 100% on R/A; Weight 97.52 kg; hb Height 5 ft. 7 in. ; Pain 3/10; 14:00 BP 132 / 90; Pulse 66; Resp 16; Pulse Ox 94% on R/A; cm10 14:30 BP 118 / 62; Pulse 64; Resp 17; Pulse Ox 96% ; cm10 15:00 BP 134 / 78; Pulse 63; Resp 15; Pulse Ox 97% ; cm10 12:38 Body Mass Index 33.67 (97.52 kg, 170.18 cm) hb 12:38 Pain Scale: Adult hb MDM: 12:52 Medical Screening Exam initiated sp3 13:14 Data reviewed: vital signs, nurses notes, lab test result(s), EKG, radiologic studies. sp3 ED course: 44-year-old male with PMH above now with very vague symptoms including generalized weakness and resolved rash. Will obtain EKG, general labs and swabs including x-ray to evaluate. Differential diagnosis includes viral illness, insect bite, electrolyte abnormality, foodborne illness to a much lesser degree ACS related syndrome. Workup negative we will safely discharge patient home. Vital signs are normal and patient is in no acute distress.. 15:06 ED course: Full workup negative. Vital signs continue to be normal. We will safely sp3 discharge patient home with diagnosis of viral illness.. 09/16 12:53 Order name: Basic Metabolic Panel; Complete Time: 15: sp3 09/16 12:53 Order name: CBC with Diff; Complete Time: 14: sp3 09/16 12:53 Order name: LFT's; Complete Time: 15: sp3 09/16 12:53 Order name: Magnesium; Complete Time: 15: sp3 09/16 12:53 Order name: NT PRO-BNP; Complete Time: 15: sp3 09/16 12:53 Order name: Troponin HS; Complete Time: 15: sp3 09/16 12:53 Order name: Flu; Complete Time: 14: sp3 09/16 12:53 Order name: SARS RAPID; Complete Time: 14: sp3 09/16 12:53 Order name: Strep sp3 09/16 13:43 Order name: Throat Culture EDID 09/16 12:53 Order name: XRAY Chest (1 view); Complete Time: 14:09 sp3 09/16 12:53 Order name: Cardiac monitoring; Complete Time: 13:29 sp3 09/16 12:53 Order name: EKG - Nurse/Tech; Complete Time: 13:29 sp3 09/16 12:53 Order name: IV Saline Lock; Complete Time: 13:29 sp3 09/16 12:53 Order name: Labs collected and sent; Complete Time: 13:14 sp3 09/16 12:53 Order name: O2 Per Protocol; Complete Time: 13:14 sp3 09/16 12:53 Order name: O2 Sat Monitoring; Complete Time: 13:14 sp3 Administered Medications: 13:31 Drug: Acetaminophen PO 650 mg PO once Route: PO; cm10 14:27 Follow up: Response: No adverse reaction cm10 13:31 Drug: Ondansetron IVP 4 mg IVP once; over 2 minutes Route: IVP; Site: right antecubital;cm10 14:27 Follow up: Response: No adverse reaction; Nausea is decreased cm10 15:30 Drug: Ibuprofen PO 600 mg PO once Route: PO; cm10 15:30 Follow up: Response: Medication administered at discharge. cm10 Disposition Summary: 09/16/24 15:07 Discharge Ordered Notes: Location: Home sp3 Condition: Stable sp3 Diagnosis - Viral illness sp3 Followup: sp3 - With: Private Physician - When: Upon discharge from the Emergency Department - Reason: Continuance of care Discharge Instructions: - Discharge Summary Sheet sp3 - Viral Illness, Adult sp3 Forms: - Medication Reconciliation Form sp3 - Antibiotic Education sp3 - Prescription Opioid Use sp3 - Patient Portal Instructions sp3 - Leadership Thank You Letter sp3 Prescriptions: - ondansetron 8 mg Oral Tablet,disintegrating - take 1 tablet ORAL route every 12 hours; 20 tablet; Refills: 0, Product sp3 Selection Permitted Signatures: Dispatcher [employer] EDID Gillian Cortes RN RN hb Patel, Setul, MD MD sp3 Aleshia Pillai RN RN cm10 Corrections: (The following items were deleted from the chart) 12:54 12:54 BASIC METABOLIC PANEL+C.LAB.BRZ ordered. EDMS EDMS 12:54 12:54 CBC+H.LAB.BRZ ordered. EDMS EDMS 12:54 12:54 HEPATIC FUNCTION+C.LAB.BRZ ordered. EDMS EDMS 12:54 12:54 MAGNESIUM+C.LAB.BRZ ordered. EDMS EDMS 12:54 12:54 PROBNP+C.LAB.BRZ ordered. EDMS EDMS 12:54 12:54 Troponin High Sensitivity+C.LAB.BRZ ordered. EDMS EDMS 12:54 12:54 Influenza Screen (A \\T\\ B)+BA.LAB.BRZ ordered. EDMS EDMS 12:54 12:54 SARS-COV-2 Antigen Rapid+I.LAB.BRZ ordered. EDMS EDMS 12:54 12:54 Group A Streptococcus Rapid Sc+BA.LAB.BRZ ordered. EDMS EDMS 12:54 12:54 Chest Single View+RAD.RAD.BRZ ordered. EDMS EDMS
--- NOTE | 2024-09-16 15:07 | ER ---
Nurse's Notes [facility] Name: Thee Key Age: 44 yrs Sex: Male : 1980 Arrival Date: 09/16/2024 Time: 12:21 Bed 17 Private MD: Diagnosis: Viral illness Presentation: 09/16 12:38 Chief complaint: Body aches, headache, nausea, fatigue, chills, subjective fever, and hb malaise upon waking today. Coronavirus screen: Client presents with at least one sign or symptom that may indicate coronavirus-19. Provider contacted for isolation considerations. Ebola Screen: No symptoms or risks identified at this time. 12:38 Method Of Arrival: Ambulatory hb 12:42 Initial Sepsis Screen: Does the patient meet any 2 criteria? No. Patient's initial hb sepsis screen is negative. Does the patient have a suspected source of infection? No. Patient's initial sepsis screen is negative. Risk Assessment: Do you want to hurt yourself or someone else? Patient reports no desire to harm self or others. Onset of symptoms was September 16, 2024. 12:42 Acuity: SALLY 3 hb Triage Assessment: 13:30 General: Appears in no apparent distress. uncomfortable, Behavior is calm, cooperative. cm10 Pain: Complains of pain in Headache Pain currently is 3 out of 10 on a pain scale. Neuro: No deficits noted. Level of Consciousness is awake, alert, obeys commands, Oriented to person, place, time, situation, Appropriate for age Reports headache. Cardiovascular: No deficits noted. Patient's skin is warm and dry. Rhythm is sinus rhythm. Respiratory: No deficits noted. Airway is patent Respiratory effort is even, unlabored, Respiratory pattern is regular, symmetrical. GI: Reports nausea. Musculoskeletal: Amputation of right leg. Historical: - PMHx: 12:40 insomnia; traumatic brain injury; hb - PSHx: 12:40 left arm surgery; RIGHT BKA; Right leg amputation; hb - Immunization history:: Adult Immunizations up to date. - Infectious Disease History:: Denies. - Social history:: Smoking status: Patient reports the use of cigarette tobacco products, denies chronic smoking, but will smoke occasionally. Screenin:30 [facility] ED Fall Risk Assessment (Adult) History of falling in the last 3 months, cm10 including since admission No falls in past 3 months (0 pts) Confusion or Disorientation No (0 pts) Intoxicated or Sedated No (0 pts) Impaired Gait Yes (1 pt) Mobility Assist Device Used Yes (1 pt) Altered Elimination No (0 pt) Score/Fall Risk Level 0 - 2 = Low Risk Oriented to surroundings, Maintained a safe environment, Hourly rounding (assess needs \T\ fall precautionary measures) done. Abuse screen: Denies threats or abuse. Denies injuries from another. Nutritional screening: No deficits noted. Tuberculosis screening: No symptoms or risk factors identified. Assessment: 14:27 Reassessment: Patient appears in no apparent distress at this time. No changes from cm10 previously documented assessment. Patient and/or family updated on plan of care and expected duration. Pain level reassessed. Patient is alert, oriented x 3, equal unlabored respirations, skin warm/dry/pink. Vital Signs: 12:38 BP 151 / 96; Pulse 69; Resp 16; Temp 98.1(TE); Pulse Ox 100% on R/A; Weight 97.52 kg; hb Height 5 ft. 7 in. ; Pain 3/10; 14:00 BP 132 / 90; Pulse 66; Resp 16; Pulse Ox 94% on R/A; cm10 14:30 BP 118 / 62; Pulse 64; Resp 17; Pulse Ox 96% ; cm10 15:00 BP 134 / 78; Pulse 63; Resp 15; Pulse Ox 97% ; cm10 12:38 Body Mass Index 33.67 (97.52 kg, 170.18 cm) hb 12:38 Pain Scale: Adult hb Vitals: 14:27 Cardiac Rhythm Assessment Regular Sinus rhythm. cm10 ED Course: 12:23 Patient arrived in ED. ra3 12:34 Graham Aparicio MD is Attending Physician. sp3 12:40 Arm band placed on. hb 12:42 Triage completed. hb 12:44 Aleshia Pillai, RN is Primary Nurse. cm10 13:13 Initial lab(s) drawn, by mi, sent to lab. EKG done, by ED staff, reviewed by Graham Aparicio MD. 13:14 Strep Sent. cm10 13:14 SARS RAPID Sent. cm10 13:14 Flu Sent. cm10 13:14 Basic Metabolic Panel Sent. cm10 13:14 CBC with Diff Sent. cm10 13:14 LFT's Sent. cm10 13:14 Magnesium Sent. cm10 13:14 NT PRO-BNP Sent. cm10 13:14 Troponin HS Sent. cm10 13:30 Patient has correct armband on for positive identification. Bed in low position. Call cm10 light in reach. Side rails up X2. Provided Education on: ER process and procedures.. Client placed on continuous cardiac and pulse oximetry monitoring. NIBP monitoring applied. color television console monitor on. 13:32 Inserted saline lock: 22 gauge in right antecubital area, using aseptic technique. cm10 Flushed with 10 mL NS. 13:32 Missed attempt(s): 20 gauge in right antecubital area. Bleeding controlled, band aid cm10 applied, catheter tip intact. 13:44 XRAY Chest (1 view) In Process Unspecified. EDMS 13:51 Lab(s) recollected, by me, sent to lab. cm10 15:31 No provider procedures requiring assistance completed. IV discontinued, intact, cm10 bleeding controlled, No redness/swelling at site. Pressure dressing applied. Administered Medications: 13:31 Drug: Acetaminophen PO 650 mg PO once Route: PO; cm10 14:27 Follow up: Response: No adverse reaction cm10 13:31 Drug: Ondansetron IVP 4 mg IVP once; over 2 minutes Route: IVP; Site: right antecubital;cm10 14:27 Follow up: Response: No adverse reaction; Nausea is decreased cm10 15:30 Drug: Ibuprofen PO 600 mg PO once Route: PO; cm10 15:30 Follow up: Response: Medication administered at discharge. cm10 Medication: 13:30 VIS not applicable for this client. cm10 Outcome: 15:07 Discharge ordered by . [email or web address] 15:31 Discharged to home ambulatory, with family, cm10 15:31 Condition: good 15:31 Discharge instructions given to patient, Instructed on discharge instructions, follow up and referral plans. Demonstrated understanding of instructions, follow-up care, 15:31 Patient left the ED. cm10 Signatures: Dispatcher [employer] EDMS Gillian Cortes, RN RN Graham Hu MD MD sp3 Aleshia Pillai RN RN cm10 Colleen Lamar
[2024-09-16] MEDS ORDERED: IBUPROFEN 200 MG TAB PO ONE (15:24)
[2024-09-16] MEDS ORDERED: IBUPROFEN 400 MG TAB ONE (15:24)
[2024-09-16 16:10] VITALS: TEMP 98.1
[2024-09-16 16:22] VITALS: BP 134/78; O2SAT 97
--- NOTE | 2024-09-17 12:14 | EKG ---
Test Date: 2024-09-16 Test Time: 13:21:45 Peanut Cleaner: CHANDRA MEASUREMENT RESULTS: Intervals: Rate: 62 WV: 164 QRSD: 94 QT: 394 QTc: 399 [place]: P: 54 WV: 164 QRS: 82 T: 20 INTERPRETIVE STATEMENTS: Normal sinus rhythm Normal ECG Compared to ECG 08/27/1996 11:25:00 No significant changes Electronically Signed On 09-17-24 12:13:04 FACTORY HAND by Abebe Jimenez
== END 2024-09-16 15:31 | disposition home or self-care (01) ==
LOC: ER 12:21
DX: B34.9 Viral infection, unspecified (principal); F17.210 Nicotine dependence, cigarettes, uncomplicated; Z11.52 Encounter for screening for COVID-19; Z87.820 Personal history of traumatic brain injury
CPT/HCPCS: 93005; 87070; 85025; 80048; 36415; 83735; 80076; 87081; 84484; 83880; 87804 ×2; 71045; 96374; 99285; 87811; J2405